=== PATIENT | male | born 1955 | race Hispanic/Latino ===

== ENCOUNTER 2016-05-08 15:30 | Emergency (ER) | payer MEDICARE, MEDICAID ==
[2016-05-08 16:51] LABS: ALT (SGPT) 16 U/L (0-55); AST (SGOT) 10 U/L (5-34); Albumin 3.7 g/dL (3.5-5.0); Alkaline Phosphatase 136 U/L (40-150); Anion Gap 17 mmol/L (10-20); BUN (Urea Nitrogen) 13 mg/dL (8.4-25.7); Bilirubin, Total 0.5 mg/dL (0.2-1.2); Calc. Creatinine Clearance 0 mL/min (70-130); Calcium 8.8 mg/dL (7.8-10.44); Carbon Dioxide 35 mmol/L (22-29); Chloride 87 mmol/L (98-107); Estimated GFR-MDRD Greater than 90; Globulin 3.2 g/dL (2.4-3.5); Glucose 200 mg/dL (70-105); Potassium 4.4 mmol/L (3.5-5.1); Protein, Total 6.9 g/dL (6.0-8.3); Sodium 135 mmol/L (136-145)
[2016-05-08 16:52] LABS: #Basophils 0.2 thou/uL (0.0-0.2); #Eosinphils 0.2 thou/uL (0.0-0.7); #Lymphocytes 1.8 thou/uL (1.20-3.40); #Monocytes 0.8 thou/uL (0.11-0.59); #Neutrophils 11.8 thou/uL (1.40-6.50); %Basophils 1.4 % (0.0-1.0); %Eosinophils 1.2 % (0.0-10.0); %Lymphocytes 12.1 % (21.0-51.0); %Monocytes 5.5 % (0.0-10.0); %Neutrophils 79.9 % (42.0-75.0); Hemoglobin 13.9 g/dL (14.0-18.0); Mean Corpuscular HGB CONC 33.1 g/dL (32.0-36.0); Mean Corpuscular Hemoglobin 31.5 pg (27.0-31.0); Mean Corpuscular Volume 95.1 fl (80.0-94.0); Mean Platelet Volume 8.3 fL (7.4-10.4); Platelet Count 223 thou/uL (130-400); RBC Distribution Width 13.3 % (11.5-14.5); Red Blood Cell (RBC) Count 4.42 mill/uL (4.70-6.10); White Blood Cell (WBC) Count 14.8 thou/uL (4.8-10.8)
[2016-05-08 16:56] LABS: Troponin I Less than 0.010 ng/mL (< 0.028)
--- NOTE | 2016-05-08 16:57 | RAD ---
FRONTAL VIEW CHEST 05/08/16 COMPARISON: 11/28/15 CLINICAL HISTORY: Dyspnea. FINDINGS: There is motion artifact which blurs the imaged anatomy and thus limits assessment. Left basilar opa city is present indicating pleural fluid with adjacent consolidation. The cardiac silhouette is prom inent as is the central pulmonary vasculature. There is a left sided cardiac pacing device again see n. IMPRESSION: Left basilar opacity indicating pleural fluid with adjacent atelectasis and/or pneumonia. This limit s assessment as detailed above. Recommend continued imaging followup. POS: [facility]
[2016-05-08] MEDS ORDERED: predniSONE 20 MG TAB ONE (17:06)
== END 2016-05-08 19:34 | disposition short-term general hospital (02) ==
LOC: MADERS 15:30
DX: J44.1 Chronic obstructive pulmonary disease with (acute) exacerbation (principal); E11.9 Type 2 diabetes mellitus without complications; J18.9 Pneumonia, unspecified organism; I50.9 Heart failure, unspecified; Z79.899 Other long term (current) drug therapy
CPT/HCPCS: 36415; 71010; 80053; 82553; 83880; 84484; 85025; 93005; J7506; J7620

== ENCOUNTER 2016-06-03 16:57 | Outpatient (CLI) | payer MEDICAID, MEDICARE, SELFPAY ==
[2016-06-03 18:37] LABS: Hemoglobin A1c 9.2 % (4.0-6.0)
== END 2016-06-03 16:58 | disposition home or self-care (01) ==
LOC: MADLAB 16:57
PROVIDERS: ATTEND Physical Medicine & Rehabilitation
DX: E11.40 Type 2 diabetes mellitus with diabetic neuropathy, unspecified (principal)
CPT/HCPCS: 83036

== ENCOUNTER 2016-11-08 11:33 | Emergency (ER) | payer MEDICAID, MEDICARE, SELFPAY ==
[2016-11-08] MEDS ORDERED: predniSONE 20 MG TAB ONE (12:19)
== END 2016-11-08 12:50 | disposition home or self-care (01) ==
LOC: MADERS 11:33
DX: J44.1 Chronic obstructive pulmonary disease with (acute) exacerbation (principal); Z76.0 Encounter for issue of repeat prescription; E11.9 Type 2 diabetes mellitus without complications; I50.9 Heart failure, unspecified; F41.0 Panic disorder [episodic paroxysmal anxiety]; F17.210 Nicotine dependence, cigarettes, uncomplicated; Z79.84 Long term (current) use of oral hypoglycemic drugs; Z79.82 Long term (current) use of aspirin; Z79.4 Long term (current) use of insulin; Z79.899 Other long term (current) drug therapy
CPT/HCPCS: 94640; J7506; J7620

== ENCOUNTER 2017-03-21 17:12 | Emergency (ER) | payer SELFPAY ==
[~2017-03-21 17:12] MED LIST: Albuterol Sulfate 2.5 mg/3 ml Neb ONE; Sodium Chloride 0.9% 1,000 ML BAG ONE; Sodium Chloride 0.9% 100 ML BAG ONE
[2017-03-21] MEDS ORDERED: Midazolam HCl 10 mg/2 ml Vial ONE (17:17)
[2017-03-21] MEDS ORDERED: Fentanyl 100 MCG/2 ML VIAL ONE (17:17)
[2017-03-21 17:28] LABS: PTT 31.2 SEC (22.9-36.1)
[2017-03-21 17:36] LABS: Band 4 % (5-11); Hemoglobin 14.6 g/dL (14.0-18.0); Lymphocytes 2 % (21-51); MDiff Complete? YES; Mean Corpuscular HGB CONC 32.6 g/dL (32.0-36.0); Mean Corpuscular Hemoglobin 31.9 pg (27.0-31.0); Mean Corpuscular Volume 97.7 fl (80.0-94.0); Mean Platelet Volume 8.1 fL (7.4-10.4); Monocytes 1 % (0-10); Neutrophil 80 % (42-75); PLT Morphology Comment Appears Adequate; Platelet Count 272 thou/uL (130-400); RBC Distribution Width 12.5 % (11.5-14.5); RBC Morphology Normal; Reactive Lymphocytes 13 % (0-10); Red Blood Cell (RBC) Count 4.58 mill/uL (4.70-6.10); White Blood Cell (WBC) Count 22.3 thou/uL (4.8-10.8)
[2017-03-21 17:39] LABS: ALT (SGPT) 29 U/L (8-55); AST (SGOT) 32 U/L (5-34); Alkaline Phosphatase 120 U/L (40-150); Anion Gap 19 mmol/L (10-20); BUN (Urea Nitrogen) 12 mg/dL (8.4-25.7); Bilirubin, Total 0.2 mg/dL (0.2-1.2); Calc. Creatinine Clearance 0 mL/min (70-130); Calcium 8.6 mg/dL (7.8-10.44); Carbon Dioxide 31 mmol/L (22-29); Chloride 92 mmol/L (98-107); Estimated GFR-MDRD Greater than 90; Globulin 4.1 g/dL (2.4-3.5); Glucose 298 mg/dL (70-105); Protein, Total 8.1 g/dL (6.0-8.3)
[2017-03-21] MEDS ORDERED: Albuterol Sulfate 1.25 MG/3 ML NEB ONE ×2 (17:39)
[2017-03-21 17:41] LABS: CKMB 2.5 ng/mL (0-6.6); Troponin I 0.012 ng/mL (< 0.028)
[2017-03-21 17:44] LABS: Sodium 137 mmol/L (136-145)
--- NOTE | 2017-03-21 17:52 | RAD ---
PORTABLE SUPINE CHEST ONE VIEW: History: 61-year-old male with respiratory distress and COPD and history of endotracheal tube placement. FINDINGS: Endotracheal tube has been placed in satisfactory location. The patient has a large body habitus that lowers the sensitivity of this study. Left ICD. Borderline cardiomegaly. There is some bilateral vas cular congestion. No confluent pneumonia, overt edema or pleural effusion. Overall stable from 2-11-1 7. IMPRESSION: Bilateral vascular congestion without overt confluent pneumonia. Endotracheal tube in satisfactory lo cation. POS: [facility]
[2017-03-21] MEDS ORDERED: Magnesium Sulfate 2 GM/NS 0.9% 50 ML BAG ONE (17:54)
[2017-03-21] MEDS ORDERED: Cefepime 1 GM VIAL ONE (17:54)
== END 2017-03-21 18:30 | disposition short-term general hospital (02) ==
LOC: MADERS 17:12
DX: J96.00 Acute respiratory failure, unspecified whether with hypoxia or hypercapnia (principal); J44.0 Chronic obstructive pulmonary disease with (acute) lower respiratory infection; J18.9 Pneumonia, unspecified organism
CPT/HCPCS: 31500; 71010; 80053; 82553; 83880; 84484; 85025; 85610; 85730; 87040; 93005; 94640; 94644; 94760; 96374; 96375; 96376; J0692; J2250; J3010; J3370; J3475; J7050; J7070; J7611; J7620

== ENCOUNTER 2017-07-07 14:44 | Emergency (ER) | payer MEDICARE ==
[~2017-07-07 14:44] MED LIST changes: -Albuterol Sulfate 2.5 mg/3 ml Neb ONE; -Sodium Chloride 0.9% 1,000 ML BAG ONE
[2017-07-07] MEDS ORDERED: AMOXicillin 250 MG CAP ONE (15:59)
[2017-07-07] MEDS ORDERED: cefTRIAXone\\ROCEPHIN 2 GM VIAL ONE (16:03)
[2017-07-07] MEDS ORDERED: Phenergan/Codeine 10-6.25mg/5ml UDCUP ONE (16:03)
--- NOTE | 2017-07-07 16:06 | RAD ---
ONE VIEW CHEST: HISTORY: Fever and cough x 1 day. Tachycardia. COMPARISON: 03/30/17. FINDINGS: AP upright chest radiograph demonstrates a normal cardiac silhouette. Limited evaluation of the wren svenous defibrillator due to under penetration. Hazy opacities in the lung bases are presumed to be due to under penetration. No obvious masses or consolidation in the upper lungs. No obvious pneumot horax. IMPRESSION: Limited evaluation due to under penetration. Dedicated 2-view chest radiograph is recommended. POS: [facility]
[2017-07-07 16:19] LABS: #Basophils 0.1 thou/uL (0.0-0.2); #Monocytes 0.7 thou/uL (0.11-0.59); #Neutrophils 12.9 thou/uL (1.40-6.50); %Eosinophils 0.1 % (0.0-10.0); %Monocytes 4.7 % (0.0-10.0); %Neutrophils 87.2 % (42.0-75.0); Hemoglobin 13.3 g/dL (14.0-18.0); Mean Corpuscular HGB CONC 34.9 g/dL (32.0-36.0); Mean Corpuscular Hemoglobin 30.7 pg (27.0-31.0); Mean Corpuscular Volume 88.1 fl (80.0-94.0); Platelet Count 221 thou/uL (130-400); RBC Distribution Width 12.6 % (11.5-14.5); Red Blood Cell (RBC) Count 4.35 mill/uL (4.70-6.10); White Blood Cell (WBC) Count 14.8 thou/uL (4.8-10.8)
[2017-07-07 16:23] LABS: INR-International Normal Ratio 0.9; PTT 28.2 SEC (22.9-36.1); Prothrombin Time 12.6 SEC (12.0-14.7)
[2017-07-07 16:33] LABS: ALT (SGPT) 14 U/L (8-55); AST (SGOT) 12 U/L (5-34); Alkaline Phosphatase 106 U/L (40-150); Anion Gap 16 mmol/L (10-20); BUN (Urea Nitrogen) 14 mg/dL (8.4-25.7); Bilirubin, Total 0.5 mg/dL (0.2-1.2); CK (CPK) 88 U/L (30-200); Calc. Creatinine Clearance 0 mL/min (70-130); Calcium 9.1 mg/dL (7.8-10.44); Carbon Dioxide 28 mmol/L (23-31); Chloride 97 mmol/L (98-107); Estimated GFR-MDRD 89; Globulin 3.3 g/dL (2.4-3.5); Glucose 149 mg/dL (80-115); Potassium 4.1 mmol/L (3.5-5.1); Protein, Total 7.3 g/dL (5.8-8.1); Sodium 137 mmol/L (136-145)
[2017-07-07 16:35] LABS: CKMB 0.7 ng/mL (0-6.6); Troponin I Less than 0.010 ng/mL (< 0.028)
[2017-07-07 17:08] LABS: Bilirubin Negative (Negative); Blood, Urine Negative (Negative); Clarity Clear (Clear); Glucose, Urine (Dipstick) Negative (Negative); Leukocyte Negative (Negative); Nitrite Negative (Negative); Protein, Urine (Dipstick) 30 mg/dL (Neg-Trace); pH, Urine 5.5 (5.0-9.0)
[2017-07-07 17:13] LABS: RBC/HPF 0-3 HPF (0-3); WBC/HPF 0-3 HPF (0-3)
[2017-07-07 17:14] LABS: Bacteria/HPF Rare-Few HPF (None Seen); Squamous Epithelial 0-3 HPF (0-3)
--- NOTE | 2017-07-07 20:28 | RAD ---
TWO VIEW CHEST: 07/07/17 COMPARISON: 07/07/17. INDICATION: Cough and fever, followup. There is enlargement of the cardiac silhouette. Left sided AICD is present. Mild prominence of the pu lmonary vasculature is present and there is hazy density at the lower hemithoraces with slight obscur ation of the costophrenic sulci which may relate to mild degree of pleural fluid. Osseous degenerativ e changes are present. IMPRESSION: Evidence of CHF. Mild associated pleural fluid not excluded. POS: [facility]
== END 2017-07-07 19:55 | disposition home or self-care (01) ==
LOC: MADERS 14:44
DX: J20.9 Acute bronchitis, unspecified (principal); E11.9 Type 2 diabetes mellitus without complications; J44.9 Chronic obstructive pulmonary disease, unspecified; F41.9 Anxiety disorder, unspecified; I10 Essential (primary) hypertension; Z79.4 Long term (current) use of insulin; Z79.899 Other long term (current) drug therapy
CPT/HCPCS: 36415; 71045; 71046; 80053; 81001; 82550; 82553; 83880; 84484; 85025; 85610; 85730; 87081; 87086; 87430; 87804; 96374; J0696; J7050

== ENCOUNTER 2017-09-19 12:08 | Emergency (ER) | payer MEDICARE, OTHER ==
[2017-09-19 12:59] LABS: INR-International Normal Ratio 0.9; PTT 26.2 SEC (22.9-36.1); Prothrombin Time 12.5 SEC (12.0-14.7)
[2017-09-19 13:08] LABS: ALT (SGPT) 11 U/L (8-55); AST (SGOT) 11 U/L (5-34); Albumin 3.9 g/dL (3.4-4.8); Alkaline Phosphatase 108 U/L (40-150); Anion Gap 17 mmol/L (10-20); BUN (Urea Nitrogen) 11 mg/dL (8.4-25.7); Bilirubin, Total 0.3 mg/dL (0.2-1.2); Calc. Creatinine Clearance 0 mL/min (70-130); Carbon Dioxide 27 mmol/L (23-31); Chloride 96 mmol/L (98-107); Estimated GFR-MDRD Greater than 90; Globulin 3.3 g/dL (2.4-3.5); Glucose 171 mg/dL (80-115); Potassium 3.9 mmol/L (3.5-5.1); Protein, Total 7.2 g/dL (5.8-8.1); Sodium 136 mmol/L (136-145)
[2017-09-19 13:09] LABS: Band 3 % (5-11); Hemoglobin 12.3 g/dL (14.0-18.0); Lymphocytes 22 % (21-51); MDiff Complete? YES; Mean Corpuscular HGB CONC 33.2 g/dL (32.0-36.0); Mean Corpuscular Hemoglobin 29.1 pg (27.0-31.0); Mean Corpuscular Volume 87.5 fL (78.0-98.0); Mean Platelet Volume 6.9 fL (7.4-10.4); Monocytes 8 % (0-10); Neutrophil 67 % (42-75); PLT Morphology Comment Appears Adequate; Platelet Count 237 thou/uL (130-400); RBC Distribution Width 12.3 % (11.5-14.5); Red Blood Cell (RBC) Count 4.24 mill/uL (4.70-6.10); White Blood Cell (WBC) Count 9.8 thou/uL (4.8-10.8)
--- NOTE | 2017-09-19 13:15 | RAD ---
CHEST PA AND LATERAL: History: 62-year-old male with history of dyspnea. Comparison: 07-07-17 FINDINGS: Left ICD. Bilateral pleural thickening appears stable. Increased linear and interstitial markings yohan aterally, also appear to be stable from prior study, 07-07-17. No confluent pneumonia or overt edema. IMPRESSION: Bilateral stable pleural thickening. Left ICD. Stable increased markings bilaterally. No significant new process. POS: [facility]
[2017-09-19] MEDS ORDERED: AMOXicillin 250 MG CAP ONE (14:02)
[2017-09-19] MEDS ORDERED: predniSONE 20 MG TAB ONE ×2 (14:02→14:03)
[2017-09-19] MEDS ORDERED: Phenergan/Codeine 10-6.25mg/5ml UDCUP ONE (14:02)
[2017-09-19] MEDS ORDERED: Acetaminophen/Codeine 30-300mg Tablet ONE (14:10)
== END 2017-09-19 14:16 | disposition home or self-care (01) ==
LOC: MADERS 12:08
DX: J20.9 Acute bronchitis, unspecified (principal)
CPT/HCPCS: 36415; 71046; 80053; 83605; 83880; 85025; 85610; 85652; 85730; 87081; 87430; 87804; J7506

== ENCOUNTER 2018-01-26 16:33 | Emergency (ER) | payer OTHER ==
[2018-01-26] MEDS ORDERED: Dexamethasone 4 MG TAB ONE (17:55)
[2018-01-26] MEDS ORDERED: Azithromycin 250 MG TAB ONE (17:55)
--- NOTE | 2018-01-26 20:12 | RAD ---
TWO VIEWS OF THE CHEST: 01/26/18 COMPARISON: 09/19/17. HISTORY: Dyspnea for four days with hypertension. FINDINGS: Two views of the chest shows a cardiomediastinal silhouette which is upper limits of normal in size. The pacemaker is unchanged in position. There is no evidence of consolidation, mass, or pleural effus ion. Degenerative changes are seen in the spine. IMPRESSION: Cardiomegaly without evidence of acute cardiopulmonary disease. POS: [facility]
== END 2018-01-26 18:15 | disposition home or self-care (01) ==
LOC: MADERS 16:33
DX: J44.1 Chronic obstructive pulmonary disease with (acute) exacerbation (principal); E11.9 Type 2 diabetes mellitus without complications; I11.0 Hypertensive heart disease with heart failure; I50.9 Heart failure, unspecified; E78.00 Pure hypercholesterolemia, unspecified; F41.9 Anxiety disorder, unspecified; F32.9 Major depressive disorder, single episode, unspecified; F43.10 Post-traumatic stress disorder, unspecified; F17.210 Nicotine dependence, cigarettes, uncomplicated
CPT/HCPCS: 71046; J7620; J8540

== ENCOUNTER 2018-10-10 08:21 | Emergency (ER) | payer MEDICARE, OTHER ==
[2018-10-10 08:50] LABS: #Basophils 0.1 thou/uL (0.0-0.2); #Eosinphils 0.1 thou/uL (0.0-0.7); #Lymphocytes 2.2 thou/uL (1.20-3.40); #Monocytes 0.6 thou/uL (0.11-0.59); #Neutrophils 8.6 thou/uL (1.40-6.50); %Basophils 0.9 % (0.0-1.0); %Eosinophils 1.1 % (0.0-10.0); %Lymphocytes 18.7 % (21.0-51.0); %Monocytes 4.9 % (0.0-10.0); %Neutrophils 74.3 % (42.0-75.0); Hemoglobin 12.7 g/dL (14.0-18.0); Mean Corpuscular HGB CONC 32.8 g/dL (32.0-36.0); Mean Corpuscular Hemoglobin 30.1 pg (27.0-31.0); Mean Corpuscular Volume 91.5 fL (78.0-98.0); Mean Platelet Volume 7.3 fL (7.4-10.4); Platelet Count 266 thou/uL (130-400); RBC Distribution Width 12.1 % (11.5-14.5); Red Blood Cell (RBC) Count 4.24 mill/uL (4.70-6.10); White Blood Cell (WBC) Count 11.6 thou/uL (4.8-10.8)
[2018-10-10] MEDS ORDERED: methylPREDNISolone Sod Succ/PF 125 MG/2 ML VIAL ONE (08:52)
[2018-10-10] MEDS ORDERED: Sodium Chloride 0.9% 100 ML BAG ONE (08:52)
[2018-10-10 09:11] LABS: ALT (SGPT) 17 U/L (8-55); AST (SGOT) 17 U/L (5-34); Alkaline Phosphatase 145 U/L (40-150); Anion Gap 18 mmol/L (10-20); BUN (Urea Nitrogen) 11 mg/dL (8.4-25.7); Bilirubin, Total 0.2 mg/dL (0.2-1.2); Calc. Creatinine Clearance 0 mL/min (70-130); Calcium 9.1 mg/dL (7.8-10.44); Carbon Dioxide 29 mmol/L (23-31); Chloride 94 mmol/L (98-107); Estimated GFR-MDRD 89; Globulin 2.8 g/dL (2.4-3.5); Glucose 332 mg/dL (80-115); Potassium 4.6 mmol/L (3.5-5.1); Protein, Total 6.8 g/dL (5.8-8.1); Sodium 136 mmol/L (136-145)
--- NOTE | 2018-10-10 09:32 | RAD ---
CHEST 2 VIEWS: INDICATION: Dyspnea. COMPARISON: Prior exam dated 01/26/2018. FINDINGS: There is stable moderate cardiomegaly. Lungs are clear. Multilevel spondylosis of the thoracic spin e is stable. AICD is unchanged. IMPRESSION: Stable cardiomegaly. POS: [facility]
[2018-10-10 09:50] LABS: Bilirubin Negative (Negative); Blood, Urine Negative (Negative); Clarity Clear (Clear); Glucose, Urine (Dipstick) >=1000 mg/dL (Negative); Leukocyte Negative (Negative); Nitrite Negative (Negative); Protein, Urine (Dipstick) Negative (Neg-Trace); Urobilinogen 0.2 mg/dL (Less than 2)
[2018-10-10] MEDS ORDERED: Piperacillin/Tazobactam 4.5 GM VIAL ONE (10:05)
[2018-10-10] MEDS ORDERED: Insulin Regular 300 UNITS/3 ML VIAL ONE (11:00)
== END 2018-10-10 11:20 | disposition short-term general hospital (02) ==
LOC: MADERS 08:21
DX: A41.9 Sepsis, unspecified organism (principal); J44.1 Chronic obstructive pulmonary disease with (acute) exacerbation; E11.9 Type 2 diabetes mellitus without complications; I11.0 Hypertensive heart disease with heart failure; I50.9 Heart failure, unspecified; E78.00 Pure hypercholesterolemia, unspecified; F41.9 Anxiety disorder, unspecified; F43.10 Post-traumatic stress disorder, unspecified; F32.9 Major depressive disorder, single episode, unspecified; F17.210 Nicotine dependence, cigarettes, uncomplicated; Z79.899 Other long term (current) drug therapy; Z79.82 Long term (current) use of aspirin; Z79.4 Long term (current) use of insulin; Z79.51 Long term (current) use of inhaled steroids
CPT/HCPCS: 71046; 80053; 81003; 83605; 84484; 85025; 85379; 87040; 93005; 94640; 94760; 96365; 96367; 96375; J1815; J1956; J2543; J2930; J3490; J7620

== ENCOUNTER 2019-01-21 16:30 | Emergency (ER) | payer MEDICARE, OTHER ==
[2019-01-21 17:25] LABS: #Basophils 0.1 thou/uL (0.0-0.2); #Eosinphils 0.2 thou/uL (0.0-0.7); #Lymphocytes 2.2 thou/uL (1.20-3.40); #Monocytes 0.7 thou/uL (0.11-0.59); #Neutrophils 8.1 thou/uL (1.40-6.50); %Basophils 0.8 % (0.0-1.0); %Eosinophils 2.1 % (0.0-10.0); %Lymphocytes 19.5 % (21.0-51.0); %Monocytes 5.8 % (0.0-10.0); %Neutrophils 71.8 % (42.0-75.0); Hemoglobin 13.2 g/dL (14.0-18.0); Mean Corpuscular HGB CONC 31.3 g/dL (32.0-36.0); Mean Corpuscular Hemoglobin 29.7 pg (27.0-31.0); Mean Corpuscular Volume 94.9 fL (78.0-98.0); Mean Platelet Volume 7.6 fL (7.4-10.4); Platelet Count 288 thou/uL (130-400); RBC Distribution Width 12.4 % (11.5-14.5); Red Blood Cell (RBC) Count 4.44 mill/uL (4.70-6.10); White Blood Cell (WBC) Count 11.2 thou/uL (4.8-10.8)
--- NOTE | 2019-01-21 17:28 | RAD ---
Exam: Chest one view HISTORY:Cough Comparison: 01/10/2019 FINDINGS: Pacemaker: Stable left-sided transvenous pacemaker. Limited evaluation of lead positioned due to unde rpenetration. Cardiac silhouette:Cardiomegaly Aorta: Unremarkable Pulmonary vessels: Normal Costophrenic angles: Bilateral pleural effusions are suspected, left greater than right. LUNGS: Bibasilar opacities, left greater than right. Partial obscuration left hemidiaphragm. Pneumothorax: None Osseous abnormalities: None IMPRESSION: Congestive heart failure. Superimposed left lower lobe pneumonia and/or aspiration cannot be excluded. Continued surveillance.
[2019-01-21 17:45] LABS: ALT (SGPT) 16 U/L (8-55); AST (SGOT) 10 U/L (5-34); Albumin 4.1 g/dL (3.4-4.8); Alkaline Phosphatase 139 U/L (40-110); Anion Gap 16 mmol/L (10-20); BUN (Urea Nitrogen) 22 mg/dL (8.4-25.7); Bilirubin, Total 0.2 mg/dL (0.2-1.2); CK (CPK) 102 U/L (30-200); Calc. Creatinine Clearance 0 mL/min (70-130); Calcium 9.7 mg/dL (7.8-10.44); Carbon Dioxide 30 mmol/L (23-31); Chloride 96 mmol/L (98-107); Estimated GFR-MDRD 64; Globulin 3.1 g/dL (2.4-3.5); Glucose 255 mg/dL (80-115); Potassium 4.3 mmol/L (3.5-5.1); Protein, Total 7.2 g/dL (5.8-8.1); Sodium 138 mmol/L (136-145)
[2019-01-21] MEDS ORDERED: cefTRIAXone\\ROCEPHIN 1 GM VIAL ONE (18:11)
== END 2019-01-21 19:31 | disposition short-term general hospital (02) ==
LOC: MADERS 16:30
DX: J18.9 Pneumonia, unspecified organism (principal); I11.0 Hypertensive heart disease with heart failure; I50.9 Heart failure, unspecified; E11.9 Type 2 diabetes mellitus without complications; E66.9 Obesity, unspecified; E78.5 Hyperlipidemia, unspecified; E78.00 Pure hypercholesterolemia, unspecified; J44.9 Chronic obstructive pulmonary disease, unspecified; F41.9 Anxiety disorder, unspecified; F32.9 Major depressive disorder, single episode, unspecified; F43.10 Post-traumatic stress disorder, unspecified; F17.210 Nicotine dependence, cigarettes, uncomplicated; Z79.899 Other long term (current) drug therapy; Z79.4 Long term (current) use of insulin; Z79.51 Long term (current) use of inhaled steroids; Z79.82 Long term (current) use of aspirin
CPT/HCPCS: 36415; 71045; 80053; 82550; 83605; 83880; 84484; 85025; 87040; 87081; 87430; 87804; 93005; 94760; 96365; J0696; J3490

== ENCOUNTER 2019-03-07 22:07 | Emergency (ER) | payer MEDICARE, OTHER ==
[2019-03-07 23:02] LABS: #Basophils 0.1 thou/uL (0.0-0.2); #Lymphocytes 1.8 thou/uL (1.20-3.40); #Monocytes 0.7 thou/uL (0.11-0.59); #Neutrophils 5.9 thou/uL (1.40-6.50); %Basophils 0.6 % (0.0-1.0); %Eosinophils 0.6 % (0.0-10.0); %Lymphocytes 21.1 % (21.0-51.0); %Monocytes 7.8 % (0.0-10.0); Hemoglobin 13.5 g/dL (14.0-18.0); Mean Corpuscular HGB CONC 31.1 g/dL (32.0-36.0); Mean Corpuscular Hemoglobin 29.5 pg (27.0-31.0); Mean Corpuscular Volume 94.9 fL (78.0-98.0); Mean Platelet Volume 8.7 fL (7.4-10.4); Platelet Count 228 thou/uL (130-400); RBC Distribution Width 12.6 % (11.5-14.5); Red Blood Cell (RBC) Count 4.59 mill/uL (4.70-6.10); White Blood Cell (WBC) Count 8.5 thou/uL (4.8-10.8)
--- NOTE | 2019-03-07 23:18 | RAD ---
EXAM: Portable chest PROVIDED CLINICAL HISTORY: Dyspnea COMPARISON: 01/21/2019 FINDINGS: Evaluation is limited by patient body habitus. Persistent left basilar pleural and/or parenchymal opa city. Left subclavian cardiac pacing device redemonstrated. Right lung appears clear. No evidence for pneumothorax. IMPRESSION: Stable radiographic appearance of the chest.
[2019-03-07 23:21] LABS: ALT (SGPT) 31 U/L (8-55); AST (SGOT) 22 U/L (5-34); Albumin 3.9 g/dL (3.4-4.8); Alkaline Phosphatase 121 U/L (40-110); Anion Gap 18 mmol/L (10-20); BUN (Urea Nitrogen) 16 mg/dL (8.4-25.7); Bilirubin, Total 0.2 mg/dL (0.2-1.2); Calc. Creatinine Clearance 0 mL/min (70-130); Calcium 8.8 mg/dL (7.8-10.44); Carbon Dioxide 28 mmol/L (23-31); Chloride 96 mmol/L (98-107); Estimated GFR-MDRD 80; Glucose 282 mg/dL (80-115); Potassium 4.1 mmol/L (3.5-5.1); Protein, Total 6.9 g/dL (5.8-8.1); Sodium 138 mmol/L (136-145)
[2019-03-07] MEDS ORDERED: Azithromycin 500 MG VIAL ONE (23:45)
[2019-03-07] MEDS ORDERED: Insulin Regular 300 UNITS/3 ML VIAL ONE (23:45)
[2019-03-07] MEDS ORDERED: methylPREDNISolone Sod Succ/PF 125 MG/2 ML VIAL ONE (23:45)
[2019-03-07] MEDS ORDERED: Sodium Chloride 0.9% 250 ML 250 ML ONE (23:46)
== END 2019-03-08 00:27 | disposition short-term general hospital (02) ==
LOC: MADERS 22:07
DX: J44.1 Chronic obstructive pulmonary disease with (acute) exacerbation (principal); I11.0 Hypertensive heart disease with heart failure; I50.9 Heart failure, unspecified; E66.9 Obesity, unspecified; E78.5 Hyperlipidemia, unspecified; E78.00 Pure hypercholesterolemia, unspecified; E11.9 Type 2 diabetes mellitus without complications; F41.9 Anxiety disorder, unspecified; F32.9 Major depressive disorder, single episode, unspecified; F43.10 Post-traumatic stress disorder, unspecified; F17.210 Nicotine dependence, cigarettes, uncomplicated; Z79.899 Other long term (current) drug therapy; Z79.82 Long term (current) use of aspirin; Z79.51 Long term (current) use of inhaled steroids; Z79.4 Long term (current) use of insulin
CPT/HCPCS: 71045; 80053; 83880; 84484; 85025; 87086; 93005; 96365; 96375; J0456; J1815; J2930; J7050; J7620

== ENCOUNTER 2020-09-13 17:00 | Emergency (ER) | payer MEDICARE, SELFPAY ==
[~2020-09-13 17:00] MED LIST changes: +Sodium Bicarb 50 MEQ/50 ML Abboject 8.4% SYRINGE ONE; +Sodium Chloride 0.9% 1,000 ML BAG ONE; -Sodium Chloride 0.9% 100 ML BAG ONE
[2020-09-13] MEDS ORDERED: Ketamine 50 MG/ML (10ML VIAL) ONE (17:06)
[2020-09-13] MEDS ORDERED: methylPREDNISolone Sod Succ/PF 125 MG/2 ML VIAL ONE (17:26)
[2020-09-13 17:40] LABS: INR-International Normal Ratio 1.1; PTT 40.3 sec (22.9-36.1); Prothrombin Time 14.1 sec (12.0-14.7)
[2020-09-13 17:49] LABS: Band 3 % (5-11); Eosinophils 2 % (0-10); Hemoglobin 12.8 g/dL (14.0-18.0); Lymphocytes 4 % (21-51); MDiff Complete? YES; Mean Corpuscular HGB CONC 31.8 g/dL (32.0-36.0); Mean Corpuscular Hemoglobin 31.3 pg (27.0-31.0); Mean Corpuscular Volume 98.6 fL (78.0-98.0); Mean Platelet Volume 9.1 fL (7.4-10.4); Metamyelocyte 2 % (0-0); Myelocyte 1 % (0-0); Neutrophil 68 % (42-75); Platelet Count 272 thou/uL (130-400); Platelet Morphology Comment Appears Adequate; Reactive Lymphocytes 20 % (0-10); White Blood Cell (WBC) Count 29.5 thou/uL (4.8-10.8)
[2020-09-13 17:51] LABS: ALT (SGPT) 64 U/L (8-55); AST (SGOT) 70 U/L (5-34); Albumin 3.7 g/dL (3.4-4.8); Alkaline Phosphatase 171 U/L (40-110); Anion Gap 28 mmol/L (10-20); BUN (Urea Nitrogen) 16 mg/dL (8.4-25.7); Bilirubin, Total 0.2 mg/dL (0.2-1.2); CK (CPK) 231 U/L (30-200); CKMB 4.3 ng/mL (0-6.6); Calc. Creatinine Clearance 0 mL/min (70-130); Calcium 8.5 mg/dL (7.8-10.44); Carbon Dioxide 19 mmol/L (23-31); Chloride 95 mmol/L (98-107); Globulin 3.2 g/dL (2.4-3.5); Glucose 399 mg/dL (80-115); Potassium 5.1 mmol/L (3.5-5.1); Protein, Total 6.9 g/dL (5.8-8.1); Sodium 137 mmol/L (136-145)
[2020-09-13 18:07] LABS: D-Dimer Test Greater than 20.00 *mcg/mL (0.27-0.43)
[2020-09-13 18:28] LABS: Bilirubin Negative (Negative); Blood, Urine Moderate (Negative); Clarity Cloudy (Clear); Glucose, Urine (Dipstick) 250 mg/dL (Negative); Ketone, Urine Negative (Negative); Leukocyte Negative (Negative); Nitrite Negative (Negative); Protein, Urine (Dipstick) > or equal to 300 mg/dL (Neg-Trace); Urobilinogen 0.2 mg/dL (Less than 2); pH, Urine 5.5 (5.0-9.0)
[2020-09-13 18:29] LABS: Bacteria/HPF 1+ HPF (None Seen); RBC/HPF Greater than 50 HPF (0-3); WBC/HPF 0-3 HPF (0-3)
[2020-09-13 18:30] LABS: Sperm/HPF 2+ HPF (None Seen)
[2020-09-14 10:25] LABS: Actual Bicarbonate (HCO3a) 26.4 mEq/L (22-28); Base Excess (BEa) 3.3 mEq/L (-2.0 to +3.0); CO2 Tension 35.5 mmHg (35.0-45.0); Calcium, Ionized (arterial) 1.04 mmol/L (1.12-1.30); Carboxyhemoglobin (COHb) 0.7 gm% (0.0-3.0); Hemoglobin (Hb) 12.9 g/dL (14.0-18.0); O2 Tension (PaO2), arterial 108.1 mmHg (> 80.0); Potassium - ABG Lab 3.25 mmol/L (3.70-5.30); pH, Arterial 7.49 (7.35-7.45)
[2020-09-14 10:28] LABS: ALV-art Gradient 204.025 mmHg (0-20); Puncture Site RRA
== END 2020-09-13 17:49 | disposition short-term general hospital (02) ==
LOC: MADERS 17:00
DX: I46.9 Cardiac arrest, cause unspecified (principal); J44.9 Chronic obstructive pulmonary disease, unspecified; J96.90 Respiratory failure, unspecified, unspecified whether with hypoxia or hypercapnia; E66.9 Obesity, unspecified; I11.0 Hypertensive heart disease with heart failure; I50.9 Heart failure, unspecified; E11.9 Type 2 diabetes mellitus without complications; E78.5 Hyperlipidemia, unspecified; E78.00 Pure hypercholesterolemia, unspecified; F17.210 Nicotine dependence, cigarettes, uncomplicated
CPT/HCPCS: 36415; 36600; 51702; 71045; 80053; 81003; 81015; 82550; 82553; 82805; 84484; 85025; 85379; 85610; 85730; 93005; 96374; 96375; J2930; J7050